=== PATIENT | male | born 1995 | race American Indian/Alaskan Native ===

== ENCOUNTER 2020-03-23 10:09 | Emergency (ER) | payer BC ==
[2020-03-23 10:17] VITALS: BP 135/86; PULSE 88; RESP 18; TEMP 98.9
[2020-03-23] MEDS ORDERED: AMOXICILLIN 500MG STARTER PACK 3 CAP BTL PO STA (10:28)
[2020-03-23] MEDS ORDERED: dexAMETHasone 4 MG TAB PO STA (10:28)
--- NOTE | 2020-03-23 10:30 | ED ---
ENT HPI - General Chief complaint: ENT Stated complaint: clearance for work Time Seen by Provider: 03/23/20 10:22 Source: patient Mode of arrival: ambulatory Limitations: no limitations - History of Present Illness Initial comments: 24-year-old male presenting today for chief complaint of sore throat. Patient states for the past 2 days he has felt warm and had a sore throat.Pstient states that someone at his work was recently diagnosed with strep pharyngitis. Patient states he has no difficulty with the act of swallowing however it is painful. patient denies vomiting, drooling, headache, neck stiffness. Patient denies known exposure to covid. patient denies cough. Patient is no additional complaints upon arrival he appears well no signs acute distress. - Related Data Previous Rx's Medication Instructions Recorded Amoxicillin 500 mg PO Q12HR 10 Days #20 cap 03/23/20 Allergies Allergy/AdvReac Type Severity Reaction Status Date / Time No Known Allergies Allergy Verified 03/23/20 10:17 Review of Systems ROS Statement: Those systems with pertinent positive or pertinent negative responses have been documented in the HPI. ROS Other: All systems not noted in ROS Statement are negative. Past Medical History Past Medical History: No Reported History History of Any Multi-Drug Resistant Organisms: None Reported Past Surgical History: No Surgical Hx Reported Past Psychological History: No Psychological Hx Reported Smoking Status: Never smoker Past Alcohol Use History: Occasional Past Drug Use History: None Reported General Exam - General Exam Comments Initial Comments: General: The patient is awake and alert, in no distress Eye: +3 mm pupils are equal, round and reactive to light, extra-ocular moveme nts are intact. No nystagmus. There is normal conjunctiva bilaterally. No signs of icterus. Ears, nose, mouth and throat: There are moist mucous membranes and no oral le sions. Oropharynx is erythematous. There is tonsillar exudates and some petechiae of the soft palate. Uvula is midline no deviation. Very mild tonsillar enlargement. Neck: The neck is supple, there is no tenderness or JVD. Cardiovascular: There is a regular rate and rhythm. No murmur, rub or gallop is appreciated. Respiratory: Lungs are clear to auscultation, respirations are non-labored, breath sounds are equal. No wheezes, stridor, rales, or rhonchi. Gastrointestinal: Soft, non-distended, non-tender abdomen without masses, no spleen enlargement appreciated or other organomegaly noted. There is no rebound or guarding present. Musculoskeletal: Normal ROM, no tenderness. Strength 5/5. Sensation intact. Radial pulses equal bilaterally 2+. Neurological: A&O x 3. CN II-XII intact grossly, There are no obvious motor or sensory deficits. Coordination appears grossly intact. Speech is normal. Skin: Skin is warm and dry and no rashes or lesions are noted. Psychiatric: Cooperative, appropriate mood & affect, normal judgment. Limitations: no limitations Course Vital Signs 03/23/20 10:14 Temperature 98.9 F Pulse Rate 88 Respiratory 18 Rate Blood Pressure 135/86 O2 Sat by Pulse 98 Oximetry Medical Decision Making - Medical Decision Making 24-year-old male presenting today for chief complaint of sore throat exposure to strep pharyngitis. There is petechiae tonsillar exudates absence of cough and patient reporting that he feels warm at home concerning for possible fever. Patient afebrile on arrival not take medications prior to presenting to the ER. Given high suspicion for strep. Patient will be treated he will have a rapid strep performed however culture will take 1-2 days. Hilario is agreeable to this care plan and discharge. Return parameters were discussed and discussed the case with attending provider Dr. morgan who is agreeable to care plan and discharge. Disposition Clinical Impression: Pharyngitis, Sore throat Disposition: HOME SELF-CARE Condition: Good Instructions (If sedation given, give patient instructions): Pharyngitis (ED), Strep Throat (ED) Additional Instructions: Please use medication as discussed. Please follow-up with family doctor in the next 2 days, recommend not returning to work until fever free for 48 hours without tylenol/motrin. Please return to emergency room if the symptoms increase or worsen or for any other concerns. Prescriptions: Amoxicillin 500 mg PO Q12HR 10 Days #20 cap Is patient prescribed a controlled substance at d/c from ED?: No Referrals: None,Stated [Primary Care Provider] - 1-2 days [facility]FF[facility] - 1-2 days Time of Disposition: 10:30
== END 2020-03-23 10:50 | disposition home or self-care (01) ==
LOC: EC 10:09
DX: J02.9 Acute pharyngitis, unspecified (principal); Z20.828 Contact with and (suspected) exposure to other viral communicable diseases
CPT/HCPCS: 87081; 87430; 99283; U0003; J8540